=== PATIENT | male | born 1965 | race Caucasian/White ===

== ENCOUNTER 2017-11-02 16:21 | Outpatient (CLI) | payer BC, OTHER ==
--- NOTE | 2017-11-02 16:46 | RAD ---
LEFT HEEL TWO VIEWS: 11/02/17 HISTORY: Pain in the left heel. FINDINGS/IMPRESSION: A tiny plantar calcaneal spur is present. The calcaneus is intact. POS: [facility]
== END 2017-11-02 16:22 | disposition home or self-care (01) ==
LOC: SCSRAD 16:21
PROVIDERS: ATTEND Nurse Practitioner Family
DX: M79.672 Pain in left foot (principal); M77.32 Calcaneal spur, left foot

== ENCOUNTER 2023-02-01 08:32 | Outpatient (CLI) | payer BC | END 2023-02-01 08:33 | disposition home or self-care (01) | LOC: RAD 08:32 | PROVIDERS: ATTEND Internal Medicine Critical Care Medicine | DX: R06.00 Dyspnea, unspecified (principal) | CPT/HCPCS: 71046 ==